=== PATIENT | female | born 1955 | race Caucasian/White ===

== ENCOUNTER 2017-07-20 14:01 | Emergency (ER) | payer BC, OTHER ==
[~2017-07-20] VITALS: Ht 165.1 cm; Wt 113.0 kg
[~2017-07-20 14:01] MED LIST: ALD2525 PO; GLC500 PO; SIMV40TA2 PO
[2017-07-20 14:07] VITALS: TEMP 36.7; Ht 165.1 cm; Wt 113.0 kg
[2017-07-20] MEDS ORDERED: PRED20TA PO (14:57)
[2017-07-20 15:09] VITALS: BP 141/92; PULSE 70; O2SAT 94
--- NOTE | 2017-07-21 17:35 | EMERGENCY ROOM VISIT NOTE ---
ED Visit Note First contact with patient: 14:45 Chief Complaint: My lower lip is swollen and I feel like him having allergic reaction. History of Present Illness: Ms. Toribio is a 62-year-old white female who ambulates into the ED accompanied by male friend complaining of lower lip swelling. Historically patient reports this occurred once before a couple months ago when she was out of town. She was seen at a local urgent care center at that time and was told this was an allergic reaction. Patient reports less than an hour ago she was in a restaurant and touched the table top. She then touched her lower lip and reports immediately she started developing swelling. Since that time she feels like the swelling is getting worse. She has not identified any aggravating or alleviating factors related to the swelling. She does report she took 12.5 mg of Benadryl with no relief of her swelling. She denies any associated symptoms including skin eruptions, hives, skin color changes, tongue swelling, throat swelling, difficulty speaking , difficulty swallowing, cough, wheezing, shortness of breath, nausea, vomiting , abdominal pain. Review of Systems: As noted above in history of present illness. 8 body systems were reviewed and found to be negative as noted above. Past Medical History: Diabetes, atrial fibrillation, hypertension, C. difficile and status post section. Current Medications: Simvastatin, Glucophage, hydrochlorothiazide/ spironolactone. Allergies to Medications: Harshil inhibitors, diltiazem, epinephrine, lisinopril Social History: Patient is currently employed; she feels safe in her home environment; she denies tobacco use and admits to alcohol use. Physical Examination: Vital Signs: Date Time Temp Pulse Resp B/P (MAP) Pulse Ox O2 Delivery O2 Flow Rate FiO2 07/20/17 15:09 70 141/92 94 07/20/17 14:07 36.7 78 20 160/88 95 Room Air GENERAL: 62-year-old female in no acute distress, nontoxic-appearing, afebrile and hemodynamically stable. NEUROLOGICAL: Awake, alert and oriented to person, place and time. Answering questions appropriately and following commands. SKIN: Warm, dry and pink. No soft tissue eruptions or trauma noted. HEENT: Atraumatic and normocephalic. PERRLA. Sclera white and conjunctiva pink. Lower lip is swollen but not erythematous. Oral cavity moist and pink. No swelling of the tongue. Pharynx is nonerythematous or edematous. Speech normal. Trachea midline. No jugular venous distention. No auditory or auscultatory stridor. THORAX: Lungs sounds are clear to auscultation and equal bilaterally with symmetrical chest wall. No wheezing, rales or rhonchi. No increased respiratory effort or rate. ABDOMEN: Soft and nontender. Positive bowel sounds in all quadrants. No guarding, rigidity or organomegaly. EXTREMITIES: Moves all extremities well on command and with purpose. ED Course: Patient is assessed as noted above. Patient's medication list was reviewed. Patient was given 60 mg of prednisone by mouth. Patient was given ice for swelling. Patient was educated about today's findings and instructed on her treatment plan ; she verbalized understanding and agreement with this plan. Clinical Impression: Lower lip swelling. Possible allergic reaction. Disposition: Patient discharged home in stable condition; prior to departure she was reassessed and subjectively reported she was feeling better and felt like the swelling was going down. Plan: Patient was placed on a prednisone taper and instructed on achieves. Patient was encouraged use 25-50 mg of Benadryl every 6 hours and 150 mg of ranitidine every 12 hours until resolution of swelling or any skin symptoms. Patient was encouraged use ice on her lip 4-5 times a day for 15-20 minutes. Patient was encouraged to contact her primary care provider and request follow up care and treatment and possible referral to package sorter. Patient is encouraged return ED for worsening swelling, hives, sensations of tongue or throat swelling, shortness of breath/wheezing or any new/concerning symptoms.
== END 2017-07-20 15:10 | disposition home or self-care (01) ==
LOC: C.EDB 14:02 → C.EDD 15:10
DX: R22.0 Localized swelling, mass and lump, head (principal); E11.9 Type 2 diabetes mellitus without complications; I10 Essential (primary) hypertension; Z98.891 History of uterine scar from previous surgery; Z79.84 Long term (current) use of oral hypoglycemic drugs; Z79.899 Other long term (current) drug therapy

== ENCOUNTER → 2017-12-06 | Outpatient (CLI) | payer BC ==
[~2017-12-06] MED LIST changes: -ALD2525 PO; -GLC500 PO; +PRED20TA PO; -SIMV40TA2 PO
--- NOTE | 2017-12-06 10:22 | DIAGNOSTIC IMAGING REPORT ---
ULTRASOUND OF THE THYROID GLAND CLINICAL HISTORY: Thyroid nodules. COMPARISON STUDY: No priors. TECHNIQUE: Real-time, grayscale, and color flow sonography of the thyroid gland is performed utilizing a high-frequency linear transducer. Images are reviewed in the transverse and longitudinal planes. FINDINGS: Right lobe: The right lobe of the thyroid gland is normal in size and homogeneous in echotexture, measuring 5.1 x 1.4 x 1.9 cm. A honeycomb nodule in the posterior midpole measures 0.6 x 0.4 x 0.6 cm. A 4 mm hypoechoic nodule is incidentally noted in the lower pole. Left lobe: The left lobe of the thyroid gland is normal in size and homogeneous in echotexture, measuring 4.9 x 1.7 x 1.6 cm. A hypoechoic nodule in the lower pole measures 1.0 x 0.9 x 0.8 cm. This is largely cystic and appears to contain macroscopic colloid. At least 3 additional subcentimeter cortical nodules are identified. Isthmus: The thyroid isthmus is mildly thickened measuring 0.5 cm in AP diameter. IMPRESSION: 1. The thyroid gland is normal in size and homogeneous in echotexture. 2. Low suspicion thyroid nodules as above measuring up to 1.0 cm. Precautionary 1 year follow-up is recommended. Electronically signed by: Ricky Ragland M.D. 12/06/2017 10:21 AM Dictated Date/Time: 12/06/2017 10:18 AM
== END | disposition home or self-care (01) ==
LOC: C.ULTR 09:07
PROVIDERS: ATTEND Internal Medicine Endocrinology, Diabetes & Metabolism
DX: E04.2 Nontoxic multinodular goiter (principal)